=== PATIENT | female | born 1965 | race Caucasian/White ===

== ENCOUNTER → 2017-03-18 | Outpatient (REF) ==
[2017-03-20 13:52] LABS: RUBELLA AB IGG 4.38 OD Ratio (>1.09); RUBELLA AB IGG Positive
== END ==
LOC: LAB 12:00
PROVIDERS: ATTEND Nurse Practitioner Family
DX: Z02.1 Encounter for pre-employment examination (principal)
CPT/HCPCS: 86735; 86762; 86765; 86787